=== PATIENT | male | born 1970 | race Caucasian/White ===

== ENCOUNTER 2018-02-19 09:52 | Emergency (ER) | payer MEDICAID ==
--- NOTE | 2018-02-19 10:46 | ED PDOC ---
Arrival/HPI - General Chief Complaint: Trauma Time Seen by Provider: 02/19/18 10:10 Historian: Patient - History of Present Illness Narrative History of Present Illness (Text): 02/19/18 10:30 47 year old male, whose PMH chronic back pain, who presents to the emergency department complaining of right elbow and left thumb pain s/p mechanical fall at 03:30 this morning at work. 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 Patient also notes having pain on right eyebrow on palpation and bilateral knee pain. Patient states taking Tylenol with relief in elbow, but is currently wearing off. He denies headache, dizziness, loss of consciousness, nausea, vomiting, diarrhea, or other complaints. Symptom Onset: Sudden Symptom Course: Unchanged Context: Work, Slipped Past Medical History - Provider Review Nursing Documentation Reviewed: Yes - Infectious Disease Hx of Infectious Diseases: None - Psychiatric Hx Substance Use: No - Anesthesia Hx Anesthesia: No Family/Social History - Physician Review Nursing Documentation Reviewed: Yes Family/Social History: Unknown Family HX Smoking Status: Unknown If Ever Smoked Hx Alcohol Use: No Hx Substance Use: No Allergies/Home Meds Allergies/Adverse Reactions: Allergies No Known Allergies Allergy (Verified 02/19/18 10:11) Review of Systems - Review of Systems Constitutional: absent: Fevers Eyes: absent: Vision Changes Respiratory: absent: SOB Cardiovascular: absent: Chest Pain Gastrointestinal: absent: Abdominal Pain, Nausea, Vomiting Genitourinary Male: absent: Dysuria Musculoskeletal: Other (right elbow pain, right eyebrow swelling, bilateral knee pain ). absent: Back Pain, Neck Pain Skin: absent: Rash Neurological: absent: Headache, Dizziness Endocrine: absent: Diaphoresis Physical Exam Vital Signs Reviewed: Yes Vital Signs Temp Pulse Resp BP Pulse Ox 02/19/18 12:35 97.7 F 72 16 128/84 99 02/19/18 12:00 69 18 123/64 100 02/19/18 11:15 74 18 127/71 99 02/19/18 10:14 98.0 F 80 18 129/78 99 02/19/18 10:05 98 F 80 16 129/78 99 Temperature: Afebrile Blood Pressure: Normal Pulse: Regular Respiratory Rate: Normal Appearance: Positive for: Well-Appearing, Non-Toxic, Comfortable Pain Distress: None Mental Status: Positive for: Alert and Oriented X 3 - Systems Exam Head: Present: Atraumatic, Normocephalic, Swelling (right eyebrow mild swelling) , Abrasion (right orbit superior right eyebrow) Pupils: Present: PERRL Extroacular Muscles: Present: EOMI Conjunctiva: Present: Normal Mouth: Present: Moist Mucous Membranes Nose (External): Present: Atraumatic Neck: Present: Normal Range of Motion. No: MIDLINE TENDERNESS, Paraspinal Tenderness Respiratory/Chest: Present: Clear to Auscultation, Good Air Exchange. No: Respiratory Distress, Accessory Muscle Use, Wheezes, Rales Abdomen: No: Tenderness, Distention Back: Present: Normal Inspection. No: CVA Tenderness, Midline Tenderness, Paraspinal Tenderness, Pain with Leg Raise Upper Extremity: Present: NORMAL PULSES, Tenderness (right elbow), Neurovascularly Intact, Capillary Refill < 2s, Other (no tenderness of hands). No: Cyanosis, Edema, Normal ROM (decreased ROM on right elbow) Lower Extremity: Present: Normal Inspection, NORMAL PULSES, Normal ROM, Neurovascularly Intact, Capillary Refill < 2 s. No: Edema, Tenderness, Swelling , Deformity Neurological: Present: GCS=15, CN II-XII Intact, Speech Normal Skin: Present: Warm, Dry, Normal Color. No: Rashes Psychiatric: Present: Alert, Oriented x 3, Normal Insight, Normal Concentration Medical Decision Making ED Course and Treatment: 02/19/18 Impression: 47 year old male with abrasion on orbital superior right eyebrow with swelling, and tenderness on right elbow with decreased ROM. Differential Diagnosis included but are not limited to: orbital injury r/o fx; right elbow injury r/o fx Plan: -- Right elbow x-ray -- orbital x-ray -- Reassess and disposition Progress Notes: PROCEDURE: Radiographs of the right elbow. IMPRESSION: Nondisplaced fracture the articular surface of the radial head. Joint effusion with elevation of the fat pad 02/19/18 12:[address] Borrego, Orthopedics, who recommended placing the patient in a sling, rest and ice injury. He advised that patient follow up with him on Thursday in the morning. Patient was given these instructions. Patient's pain has improved. His orbits xray was negative for fracture. He is walking comfortable. He will f/u with his primary care doctor as well this week. - RAD Interpretation Radiology Orders: 02/19/18 10:39 ELBOW RIGHT 3 VIEWS ROUTINE [RAD] Stat 02/19/18 10:44 ORBITS COMPLETE [RAD] Stat Paediatrician: Radiologist - Medication Orders Current Medication Orders: Discontinued Medications Ketorolac Tromethamine (Toradol) 60 mg IM STAT STA Stop: 02/19/18 12:10 Last Admin: 02/19/18 12:13 Dose: 60 mg MAR Pain Assessment Document 02/19/18 12:13 TA (Rec: 02/19/18 12:14 TA [id number]) Pain Reassessment Is this a pain reassessment? No Sleep Is patient sleeping during reassessment? No Presence of Pain Presence of Pain Yes Pain Scale Used Pain Scale Used Numeric Location Left, Right or Bilateral Right Pain Location Body Site Elbow Description Description Sharp Pain Behavior Guarding Aggravating Factors ADL's Alleviating Factors/Management Medication Techniques IM Administration Charges Document 02/19/18 12:13 TA (Rec: 02/19/18 12:14 TA [id number]) Injection Site MAR Injection Site Left Deltoid Charges for Administration # of IM Administrations 1 - Scribe Statement The provider has reviewed the documentation as recorded by the Scribe Missy Wilson Provider Scribe Attestation: All medical record entries made by the Scribe were at my direction and personally dictated by me. I have reviewed the chart and agree that the record accurately reflects my personal performance of the history, physical exam, medical decision making, and the department course for this patient. I have also personally directed, reviewed, and agree with the discharge instructions and disposition. Disposition/Present on Arrival - Present on Arrival Any Indicators Present on Arrival: No History of DVT/PE: No History of Uncontrolled Diabetes: No Urinary Catheter: No History of Decub. Ulcer: No History Surgical Site Infection Following: None - Disposition Have Diagnosis and Disposition been Completed?: Yes Diagnosis: Elbow fracture Disposition: HOME/ ROUTINE Disposition Time: 12:35 Patient Plan: Discharge Condition: IMPROVED Discharge Instructions (ExitCare): Elbow Fracture (DC) Additional Instructions: Grabiel, thank you for letting us take care of you today. Your provider was Dr. Sears. You were treated for Elbow Fracture. The emergency medical care you received today was directed at your acute symptoms. If you were prescribed any medication, please fill it and take as directed. It may take several days for your symptoms to resolve. Return to the Emergency Department if your symptoms worsen, do not improve, or if you have any other problems. MAKE SURE TO FOLLOWUP WITH DR. BORREGO ON 02/22/18 IN THE MORNING. Please contact your doctor or call one of the physicians/clinics you have been referred to that are listed on the Patient Visit Information form that is included in your discharge packet. Bring any paperwork you were given at discharge with you along with any medications you are taking to your follow up visit. Our treatment cannot replace ongoing medical care by a primary care provider (PCP) outside of the emergency department. Thank you for allowing the [facility] team to be part of your care today. If you had an X-Ray or CT scan: A Radiologist will review the ED reading if any change in treatment is needed we will contact you. If you had a blood, urine, or wound culture: It will take several days for the results, if any change in treatment is needed we will contact you. If you had an STI test: It will take 48 hours for the results. Please call after 1 week if you have not heard back. Prescriptions: Ibuprofen [Motrin] 600 mg PO Q6 PRN #30 tab PRN Reason: Pain, Moderate (4-7) Referrals: Deng Borrego MD [Staff Provider] - Follow up with primary Forms: [employer] (Montenegrin), WORK NOTE
--- NOTE | 2018-02-19 12:16 | RAD ---
PROCEDURE: Radiographs of the right elbow. HISTORY: R/O Fx COMPARISON: No prior. FINDINGS: BONES: There is a nondisplaced fracture of the articular surface of the radial head seen on the obliques view JOINTS: Normal. No osteoarthritis. SOFT TISSUES: Normal. JOINT EFFUSION: There is a large joint effusion with elevation of the anterior fat pad OTHER FINDINGS: None. IMPRESSION: Nondisplaced fracture the articular surface of the radial head. Joint effusion with elevation of the fat pad
[2018-02-19 12:35] VITALS: BP 128/84; PULSE 72; RESP 16; TEMP 97.7; O2SAT 99
--- NOTE | 2018-02-19 13:18 | RAD ---
PROCEDURE: Radiographs of the Orbits. HISTORY: fall r/o fx COMPARISON: None available. TECHNIQUE: Frontal, lateral and oblique radiographs of the orbits were obtained. FINDINGS: ORBITS: Orbital rims grossly intact. No radiopaque foreign body. PARANASAL SINUSES: Grossly clear. No evidence of fracture or other destructive changes. OTHER FINDINGS: None. IMPRESSION: Unremarkable radiographs of the orbits.
== END 2018-02-19 12:35 | disposition home or self-care (01) ==
LOC: ED 09:52
DX: S52.124A Nondisplaced fracture of head of right radius, initial encounter for closed fracture (principal); W01.0XXA Fall on same level from slipping, tripping and stumbling without subsequent striking against object, initial encounter; Y92.524 Gas station as the place of occurrence of the external cause; Y99.0 Civilian activity done for income or pay
CPT/HCPCS: 29240; 70200; 73080; 96372; 99285; J1885

== ENCOUNTER 2019-04-12 08:02 | Outpatient (CLI) | payer MEDICAID | END 2019-04-12 08:03 | disposition home or self-care (01) | LOC: RAD 08:02 ==